=== PATIENT | male | born 1990 | race Caucasian/White ===

== ENCOUNTER 2022-08-09 20:32 | Emergency (ER) | payer MEDICAID ==
[~2022-08-09] VITALS: Ht 198.1 cm; Wt 145.1 kg
[2022-08-09 20:36] VITALS: BP 167/116
--- NOTE | 2022-08-09 21:08 | NUR ---
PT TAKEN TO BED 6
--- NOTE | 2022-08-09 21:08 | NUR ---
PT TO BED 05 Addendum: 08/09/22 at 2108 by LAURIJ TO BED #6
[2022-08-09 21:38] LABS: BASOPHILS # (AUTO) 0.1 K/uL (0.00-0.22); BASOPHILS % (AUTO) 0.6 % (0.0-2.0); EOSINOPHILS # (AUTO) 0.2 K/uL (0-0.4); HEMATOCRIT 42.1 % (36-52); LYMPHOCYTES # (AUTO) 1.8 K/uL (2.0-11.5); LYMPHOCYTES % (AUTO) 21.9 % (20.5-51.1); MEAN CORPUSCULAR HEMOGLOBIN 31 pg (27-31); MEAN CORPUSCULAR HGB CONC 36 g/dL (33-37); MEAN CORPUSCULAR VOLUME 85.5 fL (80-94); MONOCYTES # (AUTO) 0.5 K/uL (0.8-1.0); MONOCYTES % (AUTO) 6.4 % (1.7-9.3); NEUTROPHILS # (AUTO) 5.6 K/uL (1.8-7.7); NEUTROPHILS % (AUTO) 69.1 % (42.2-75.2); PLATELET COUNT (AUTO) 251 K/uL (140-450); RED BLOOD CELL COUNT(AUTO) 4.92 MIL/uL (4.20-6.10); RED CELL DISTRIBUTION WIDTH 13.2 % (11.6-13.7); WHITE BLOOD COUNT (AUTO) 8.1 K/uL (4.8-10.8)
--- NOTE | 2022-08-09 21:39 | NUR ---
PT ON BEDSIDE [employer]. 20G IV CATH PLACED R WRIST LABS COLLECTED AND SENT TO LAB
--- NOTE | 2022-08-09 21:44 | NUR ---
Dr. Ramírez by bedside
--- NOTE | 2022-08-09 21:47 | NUR ---
XRAY AT BEDSIDE
[2022-08-09] MEDS ORDERED: ONDANSETRON 4 MG/2 ML VIAL IVP ONE (21:50)
[2022-08-09] MEDS ORDERED: ENOXAPARIN 120 MG/0.8 ML SYR SUBQ ONE (21:50)
[2022-08-09] MEDS ORDERED: MORPHINE SULFATE 4 MG/ML SYR IVP ONE ×2 (21:50→22:40)
[2022-08-09 21:56] LABS: ALBUMIN 3.1 g/dL (3.4-5.0); CARBON DIOXIDE 25.5 mmol/L (21-32); CREATININE 0.7 mg/dL (0.6-1.3); TOTAL BILIRUBIN 0.2 mg/dL (0.0-1.0)
[2022-08-09 22:06] LABS: ANION GAP 10.4 (8-16)
[2022-08-09 22:09] LABS: POTASSIUM 2.9 mmol/L (3.5-5.1)
--- NOTE | 2022-08-09 22:22 | NUR ---
COVID SWAB COLLECTED AND SENT TO LAB
[2022-08-09] MEDS ORDERED: POTASSIUM CHLORIDE 10 MEQ TABER PO ONE (22:30)
--- NOTE | 2022-08-09 22:30 | NUR ---
c/o 8/[address] ospina made aware and is at bedside
[2022-08-09] MEDS ORDERED: ENALAPRILAT 2.5 MG/2 ML VIAL IVP ONE (22:40)
--- NOTE | 2022-08-09 23:45 | NUR ---
PENDING ORDERS FOR ADMISSION. PT AWARE OF ADMISSION
--- NOTE | 2022-08-09 23:46 | NUR ---
SECOND TROP COLLECTED AND SENT TO LAB
[2022-08-09 23:59] VITALS: BP 162/84
[2022-08-10] MEDS ORDERED: MORPHINE SULFATE 2 MG/ML SYR IVP PRN (00:05)
--- NOTE | 2022-08-10 00:05 | NUR ---
Attempted to collect urine, pt stated he is unable to give urine at this time.
--- NOTE | 2022-08-10 00:26 | NUR ---
Patient does not wish to proceed with medical care recommended by Dr. Jaime. Patient given information related to possible complications, up to and including , which could occur as a result of leaving hospital at this time. Patient verbalizes understanding of risks involved leaving against medical advice. Patient has signed AMA form.
[2022-08-10 00:56] LABS: BARBITURATE, URINE NEGATIVE ng/ml (NEG <=200); BENZODIAZEPINE, URINE NEGATIVE ng/mL (NEG <=200); CANNABINOID, URINE NEGATIVE ng/mL (NEG <=50); COCAINE, URINE NEGATIVE ng/mL (NEG <=300); OPIATE, URINE NEGATIVE ng/mL (NEG <=2000); PHENCYCLIDINE SCREEN,URINE NEGATIVE ng/mL (NEG <=25)
== END 2022-08-10 | disposition admitted as inpatient to this hospital (09) ==
LOC: MED 20:32 → UNDOADMIN 08-10 → MTU 08-10 → UNDODISIN 08-10 00:26
DX: I20.9 Angina pectoris, unspecified (principal); Z20.822 Contact with and (suspected) exposure to COVID-19; I10 Essential (primary) hypertension; E87.6 Hypokalemia; I25.2 Old myocardial infarction; Z90.49 Acquired absence of other specified parts of digestive tract; Z88.1 Allergy status to other antibiotic agents; Z88.5 Allergy status to narcotic agent; Z88.6 Allergy status to analgesic agent; Z88.8 Allergy status to other drugs, medicaments and biological substances
CPT/HCPCS: 36415; 71045; 80053; 80305; 83880; 84484; 85025; 87426; 96372; 96374; 96375; 96376; 99291; J1650; J2270; J2405; J3490; Q0092